=== PATIENT | female | born 1930 | race Two or more races ===

== ENCOUNTER → 2018-04-12 | Outpatient (CLI) | payer OTHER ==
[~2018-04-12] MED LIST: SEPTRA DS TABLE1 TAB PO; VASOTEC20 MG PO; ZANTAC300 MG PO; ZOFRAN4 MG PO
== END | disposition home or self-care (01) ==
LOC: RAD 14:42
DX: M19.90 Unspecified osteoarthritis, unspecified site (principal); M12.9 Arthropathy, unspecified

== ENCOUNTER 2020-03-27 16:18 | Emergency (ER) | payer OTHER ==
[~2020-03-27] VITALS: Ht 154.9 cm; Wt 48.5 kg
[2020-03-27] MEDS ORDERED: HORIZANT300 MG PO (23:40)
== END 2020-03-28 00:31 | disposition home or self-care (01) ==
LOC: ER 16:18
DX: B02.9 Zoster without complications (principal); R10.11 Right upper quadrant pain